=== PATIENT | female | born 1955 | race Caucasian/White ===

== ENCOUNTER 2020-05-05 12:41 | Emergency (ER) | payer MEDICARE ==
[~2020-05-05] VITALS: Ht 165.1 cm; Wt 75.0 kg
[2020-05-05 12:55] VITALS: BP 191/105
== END 2020-05-05 13:41 | disposition home or self-care (01) ==
LOC: ER 12:41
DX: J06.9 Acute upper respiratory infection, unspecified (principal); Z20.828 Contact with and (suspected) exposure to other viral communicable diseases; I10 Essential (primary) hypertension; Z85.3 Personal history of malignant neoplasm of breast
CPT/HCPCS: 36415; 87635; 99283